=== PATIENT | male | born 1975 | race Two or more races ===

== ENCOUNTER 2017-04-24 07:37 | Day surgery (SDC) | payer BC ==
[2017-04-20 11:07] LABS: BASOPHILS # (AUTO) 0.1 X10'3 (0-0.2); BASOPHILS % (AUTO) 1.1 % (0-1); EOSINOPHILS # (AUTO) 0.1 X10'3 (0-0.9); EOSINOPHILS % (AUTO) 1.9 % (0-6); LYMPHOCYTES # (AUTO) 1.7 X10'3 (1.1-4.8); LYMPHOCYTES % (AUTO) 28.6 % (21-51); MEAN CORPUSCULAR HEMOGLOBIN 30.8 PG (27.0-31.0); MEAN CORPUSCULAR HGB CONC 34.9 % (33.0-36.5); MEAN CORPUSCULAR VOLUME 88.3 FL (78-98); MEAN PLATELET VOLUME 8.6 FL (7.4-10.4); MONOCYTES # (AUTO) 0.3 X10'3 (0-0.9); MONOCYTES % (AUTO) 5.2 % (2-12); NEUTROPHILS # (AUTO) 3.8 X10'3 (1.8-7.7); NEUTROPHILS % (AUTO) 63.2 % (42-75); PRE OP HEMATOCRIT 48.2 % (42.0-52.0); PRE OP HEMOGLOBIN 16.8 g/dL (14.0-17.9); PRE OP PLATELET COUNT 212 X10'3 (140-440); RED BLOOD COUNT 5.46 X10'6 (4.70-6.10); RED CELL DISTRIBUTION WIDTH 11.6 % (11.5-14.5)
[2017-04-20 11:08] LABS: CLARITY,URINE Clear (Clear); COLOR,URINE Yellow (Yellow); GLUCOSE, URINE Negative (Neg); KETONES,URINE Negative (Neg); LEUKOCYTE ESTERASE ,URINE Negative (Neg); NITRITES, URINE Negative (Neg); OCCULT BLOOD,URINE Negative (Neg); PROTEIN,URINE Negative (Neg); UROBILINOGEN,URINE 0.2 E.U/dL (0.2-1.0)
[2017-04-20 11:13] LABS: UA COLLECTION TYPE CLN CATCH MIDSTREAM
[2017-04-20 11:24] LABS: ALBUMIN 3.9 G/DL (3.4-5.0); ALBUMIN/GLOBULIN RATIO 1.2 (1.1-1.5); ALKALINE PHOSPHATASE 71 IU/L (46-116); BLOOD UREA NITROGEN 5 MG/DL (7-18); BUN/CREATININE RATIO 6.3 (5.4-32.0); CALCIUM 9.1 MG/DL (8.5-10.1); CHLORIDE 105 MMOL/L (99-107); PRE OP ANION GAP 9 (8-16); PRE OP AST 65 U/L (10-37); PRE OP BILIRUB, TOTAL 0.5 MG/DL (0.0-1.0); PRE OP GLUCOSE 140 MG/DL (70-104); PRE OP POTASSIUM 4.3 MMOL/L (3.4-5.1); PRE OP SODIUM 140 MMOL/L (135-145); TOTAL CARBON DIOXIDE 26.2 MMOL/L (24-32); TOTAL PROTEIN 7.2 G/DL (6.4-8.2); eGFR > 90 ML/MIN
[2017-04-20 11:38] LABS: PRE OP ALT 204 U/L (30-65)
[2017-04-24] VITALS (12 sets, daily range): BP systolic 120–147; BP diastolic 72–89
[~2017-04-24] VITALS: Ht 172.7 cm; Wt 110.9 kg
[2017-04-24] MEDS: ceFAZolin 2gm in dextrose, iso 100 ML IV ONE ×2 (05:30→08:19)
[~2017-04-24 07:37] MED LIST: CAPT12.53 PO; OMEP20TA23 PO; ceFAZolin 2gm in dextrose, iso 100 ML IV ONE; famotidine 20mg tablet PO ONE; ringers solution, lacted 1,000 ML IV SCH
[2017-04-24] MEDS ORDERED: LIDOcaine 1% (10mg/ml) 2ml vial ONE (08:03)
[2017-04-24] MEDS ORDERED: BUPIVAcaine 0.5% inj/PF 30 ML ONE (10:55)
[2017-04-24] MEDS ORDERED: fentaNYL/PF 50MCG/1 ML 2ML syringe ONE (11:25)
[2017-04-24] MEDS ORDERED: midazolam 2 mg/2 ml injection ONE (11:25)
[2017-04-24] MEDS ORDERED: BUPIVAcaine 0.5% inj/PF 30 ml vial IJ ONE (11:30)
[2017-04-24] MEDS ORDERED: sevoflurane 250ml liquid IH ONE (11:30)
[2017-04-24] MEDS ORDERED: hydrALAZINE 20mg/ml inj. IV PRN (12:00)
[2017-04-24] MEDS ORDERED: ondansetron/PF 4mg/2ml inj IV PRN (12:00)
[2017-04-24] MEDS ORDERED: meperidine/PF 25mg/ml syringe IV ONE (12:00)
[2017-04-24] MEDS ORDERED: morphine 2 MG/ML inj. syringe IV PRN ×2 (12:00)
[2017-04-24] MEDS ORDERED: ringers solution, lacted 1,000 ML IV ONE (12:00)
[2017-04-24] MEDS ORDERED: meperidine/PF 25mg/ml syringe IV PRN ×2 (12:00)
[2017-04-24] MEDS ORDERED: methylene blue (5mg/ml) 50mg/10ml ampul IV ONE (12:00)
[2017-04-24] MEDS ORDERED: labetalol 20mg/4ml (5mg/ml) syringe IV PRN (12:00)
[2017-04-24] MEDS ORDERED: dexamethasone sod phosphate 4mg/ml inj. ONE (12:03)
[2017-04-24] MEDS ORDERED: ondansetron/PF 4mg/2ml inj ONE (12:03)
[2017-04-24] MEDS ORDERED: propofol inj 20 ML IV ONE (12:03)
[2017-04-24] MEDS ORDERED: rocuronium 10mg/ml inj IV ONE (12:04)
[2017-04-24] MEDS ORDERED: LIDOcaine 1%/PF (10mg/ml) 5ml vial ONE (12:04)
[2017-04-24] MEDS ORDERED: neostigmine methylsulfate 1 MG/ML 10ml vial ONE (12:05)
[2017-04-24] MEDS ORDERED: glycopyrrolate 0.2mg/ml inj ONE (12:05)
== END 2017-04-24 14:20 | disposition home or self-care (01) ==
LOC: PAS 07:37
PROVIDERS: ATTEND Surgery
DX: K60.3 Anal fistula (principal); K64.9 Unspecified hemorrhoids; I10 Essential (primary) hypertension; K60.2 Anal fissure, unspecified; Z87.891 Personal history of nicotine dependence; E66.9 Obesity, unspecified; Z68.37 Body mass index [BMI] 37.0-37.9, adult
CPT/HCPCS: 36415; 46250; 46270; 80053; 81003; 85025; 93005; A6224; A6266; A6449; J0690; J1100; J2001; J2175; J2250; J2405; J2704; J2710; J3010; J3490; J7120; A7000

== ENCOUNTER 2017-04-30 09:01 | Emergency (ER) | payer BC ==
[~2017-04-30] VITALS: Ht 172.7 cm; Wt 106.0 kg
[~2017-04-30 09:01] MED LIST changes: -ceFAZolin 2gm in dextrose, iso 100 ML IV ONE; -famotidine 20mg tablet PO ONE; -ringers solution, lacted 1,000 ML IV SCH
[2017-04-30 09:04] VITALS: BP 136/107
[2017-04-30] MEDS ORDERED: PRED10TA PO (09:38)
[2017-04-30] MEDS ORDERED: DIPH25CA83 PO (09:38)
== END 2017-04-30 09:50 | disposition home or self-care (01) ==
LOC: ER 09:02
DX: R21 Rash and other nonspecific skin eruption (principal); T39.1X5A Adverse effect of 4-Aminophenol derivatives, initial encounter; Y92.89 Other specified places as the place of occurrence of the external cause
CPT/HCPCS: 99283